=== PATIENT | female | born 1935 | race Caucasian/White ===

== ENCOUNTER 2017-11-08 15:16 | Emergency (ER) | payer MEDICARE ==
--- NOTE | 2017-11-08 15:57 | C.PDOC ---
History Of Present Illness 82yo elderly female, comes to ER reporting a sore throat since yesterday. Patient reports it hurts to swallow and feels as if there is a "ball" in the right anterior side of her neck. She otherwise denies any fever, chills, cough, and no additional complaints. Time Seen by Provider: 11/08/17 15:43 Chief Complaint (Nursing): ENT Problem History Per: Patient History/Exam Limitations: None Onset/Duration Of Symptoms: Days Current Symptoms Are (Timing): Still Present Past Medical History Reviewed: Historical Data, Nursing Documentation, Vital Signs Vital Signs: Last Vital Signs Temp 98.4 F 11/08/17 15:19 Pulse 60 11/08/17 15:19 Resp 16 11/08/17 15:19 BP 158/87 H 11/08/17 15:19 Pulse Ox 98 11/08/17 15:19 - Medical History PMH: HTN Surgical History: Cholecystectomy Family History: States: No Known Family Hx - Social History Hx Tobacco Use: No Hx Alcohol Use: No Hx Substance Use: No - Immunization History Hx Tetanus Toxoid Vaccination: No Hx Influenza Vaccination: No Hx Pneumococcal Vaccination: No Review Of Systems Except As Marked, All Systems Reviewed And Found Negative. Constitutional: Negative for: Fever, Chills ENT: Positive for: Throat Pain Cardiovascular: Negative for: Chest Pain Respiratory: Negative for: Cough, Shortness of Breath Physical Exam - Physical Exam Appears: Non-toxic, Other (mild distress) Skin: Normal Color Head: Atraumatic Eye(s): bilateral: Normal Inspection Ear(s): Bilateral: Normal Oral Mucosa: Moist Throat: Erythema (mild), No Exudate, No Drooling, No Mass Neck: Normal ROM, Supple Lymphatic: No Adenopathy (submandibular) Chest: Symmetrical Cardiovascular: Rhythm Regular Respiratory: Normal Breath Sounds Neurological/Psych: Oriented x3 ED Course And Treatment O2 Sat by Pulse Oximetry: 98 (RA) Pulse Ox Interpretation: Normal Medical Decision Making Medical Decision Making: minor sore throat, normal submandibular exam prob viral NSAIDS educated. Disposition Doctor Will See Patient In The: Office Counseled Patient/Family Regarding: Studies Performed, Diagnosis - Disposition Referrals: Ray Serrano Jr., MD [Medical Doctor] - Disposition: HOME/ ROUTINE Disposition Time: 15:56 Condition: GOOD Additional Instructions: sigue ibuprofeno/advil/motrin 400 mg cada 6 horas deena necessario Sigue con Dr. Serrano deena necessario Instructions: Viral Pharyngitis Forms: [facility] (Norwegian) Print Language: SYRIAC - Clinical Impression Clinical Impression: Sore throat (viral) - Scribe Statement The provider has reviewed the documentation as recorded by the Marcelaibjaden Resendiz Provider Attestation: All medical record entries made by the Marcelaibjaden were at my direction and personally dictated by me. I have reviewed the chart and agree that the record accurately reflects my personal performance of the history, physical exam, medical decision making, and the department course for this patient. I have also personally directed, reviewed, and agree with the discharge instructions and disposition.
[2017-11-08 16:22] VITALS: BP 159/81; PULSE 66; RESP 15; TEMP 98.9
[2017-11-08 16:33] VITALS: O2SAT 98
== END 2017-11-08 16:22 | disposition home or self-care (01) ==
LOC: C.ER 15:16
DX: J02.9 Acute pharyngitis, unspecified (principal)